=== PATIENT | female | born 1975 | race Caucasian/White ===

== ENCOUNTER 2022-08-23 18:05 | Emergency (ER) | payer BC ==
[~2022-08-23] VITALS: Ht 152.4 cm; Wt 56.7 kg
[2022-08-23] MEDS ORDERED: IBUP600 PO (22:15)
[2022-08-23] MEDS ORDERED: PROM25 PO (22:15)
== END 2022-08-23 22:45 | disposition home or self-care (01) ==
LOC: ER 18:05
DX: R51.9 Headache, unspecified (principal)
CPT/HCPCS: J1170; J1200; J1885; J2550

== ENCOUNTER → 2023-05-13 | Outpatient (CLI) | payer BC ==
[~2023-05-13] MED LIST: IBUP600 PO; PROM25 PO
== END | disposition home or self-care (01) ==
LOC: LAB SHORT 14:23 → LAB 14:23
DX: L08.9 Local infection of the skin and subcutaneous tissue, unspecified (principal)
CPT/HCPCS: 87070; 87205

== ENCOUNTER → 2023-06-25 | Outpatient (CLI) | payer BC ==
[~2023-06-25] MED LIST changes: +SULFAMETHOXAZO1 EACH PO; +TRIDERM28.4 GM TOP
== END ==
LOC: LAB 21:05 → LAB SHORT 21:05
DX: R21 Rash and other nonspecific skin eruption (principal)
CPT/HCPCS: 87070; 87077; 87186; 87205

== ENCOUNTER 2023-07-04 17:45 | Emergency (ER) | payer BC ==
[~2023-07-04] VITALS: Ht 160 cm; Wt 65.8 kg
[~2023-07-04 17:45] MED LIST changes: -SULFAMETHOXAZO1 EACH PO; -TRIDERM28.4 GM TOP
[2023-07-04 18:30] LABS: BASOPHILS ABSOLUTE AUTO 0.02 K/mm3 (0.00-0.23); BASOPHILS PERCENT AUTO 0 % (0-2); EOSINOPHILS ABSOLUTE AUTO 0.63 K/mm3 (0.00-0.68); EOSINOPHILS PERCENT AUTO 8 % (0-6); Hematocrit 39.9 % (33.0-51.0); Hemoglobin 13.3 g/dL (11.5-16.0); IMMATURE GRAN ABSOLUTE AUTO 0.04 K/mm3 (0.00-0.10); IMMATURE GRAN PERCENT AUTO 1 % (0-1); LYMPHOCYTES ABSOLUTE AUTO 1.09 K/mm3 (0.84-5.20); LYMPHOCYTES PERCENT AUTO 14 % (21-46); MONOCYTES PERCENT AUTO 5 % (4-13); Mean Corpuscular HGB 27.5 pg (26.0-34.0); Mean Corpuscular HGB Conc 33.3 g/dL (31.5-36.5); Mean Corpuscular Volume 82 fL (80-100); NEUTROPHILS ABSOLUTE AUTO 5.71 K/mm3 (1.96-9.15); NEUTROPHILS PERCENT AUTO 72 % (41-73); Platelet Count 304 K/mm3 (150-400); RDW Coefficient Variation 13.7 % (11.7-14.2); RDW Standard Deviation 40.8 fL (35.1-46.3); Red Blood Cell Count 4.84 M/mm3 (3.80-5.20); White Blood Cell Count 7.89 K/mm3 (4.00-11.30)
[2023-07-04 19:02] LABS: Albumin, Blood 3.2 g/dL (3.4-5.0); Albumin/Globulin Ratio 0.8 (0.8-1.8); Bilirubin, Total 0.3 mg/dL (0.1-1.0); Bun/Creatinine Ratio 17.6 (12.0-20.0); Calcium, Blood 9.4 mg/dL (8.5-10.1); Creatinine, Blood 0.68 mg/dL (0.40-1.00); Globulin, Blood 3.8 g/dL (2.2-4.0); Potassium, Blood 3.5 mmol/L (3.5-5.5)
[2023-07-04 19:18] LABS: Influenza A, PCR NEGATIVE (NEGATIVE); Influenza B, PCR NEGATIVE (NEGATIVE); Resp Syncytial Virus, PCR NEGATIVE (NEGATIVE); SARS-Cov-2 (COVID-19) PCR, MMC NEGATIVE (NEGATIVE)
[2023-07-04] MEDS ORDERED: SULFAMETHOXAZO1 EACH PO (21:05)
[2023-07-04] MEDS ORDERED: TRIDERM28.4 GM TOP (21:05)
[2023-07-04 22:01] LABS: Source, Urine Clean Catch
[2023-07-04 22:08] LABS: Bilirubin, Urine Neg (Neg); Blood, Urine 1+ (Neg); Glucose Qualitative, Urine Neg (Neg); Ketones, Urine Neg (Neg); Leukocyte Esterase, Urine Neg (Neg); Nitrite, Urine Neg (Neg); Protein, Urine Neg (Neg); Specific Gravity, Urine 1.025 (1.003-1.022); Urobilinogen, Urine NORM (Normal)
[2023-07-04 22:20] LABS: Appearance, Urine Clear (Clear); Color, Urine Yellow (P-Yellow)
[2023-07-04 22:21] LABS: Bacteria Rare /hpf; Red Blood Cells, Urine 0-2 /hpf (0-2); Squamous Epithelial Cells Few /hpf (Few); White Blood Cells, Urine 0-2 /hpf (0-5)
[2023-07-05 01:03] VITALS: BP 119/73
== END 2023-07-05 01:08 | disposition home or self-care (01) ==
LOC: ER 17:45
PROVIDERS: Student in an Organized Health Care Education/Training Program
DX: L27.0 Generalized skin eruption due to drugs and medicaments taken internally (principal); L30.9 Dermatitis, unspecified; T36.8X5A Adverse effect of other systemic antibiotics, initial encounter; G43.909 Migraine, unspecified, not intractable, without status migrainosus; Z20.822 Contact with and (suspected) exposure to COVID-19; Z79.899 Other long term (current) drug therapy
CPT/HCPCS: 0241U; 71046; 80053; 81001; 81025; 83690; 84484; 85025; 93005; 93010; 96374; 96375; 96376; 99284-25; J1200; J1885; J7030